=== PATIENT | male | born 1995 | race Caucasian/White ===

== ENCOUNTER 2019-12-30 00:34 | Outpatient (CLI) | payer OTHER, SELFPAY ==
[2019-12-30 18:35] LABS: SARS-CoV-2 RNA PCR Negative
== END 2019-12-30 00:35 | disposition home or self-care (01) ==
LOC: ANHCOVIDDT 00:35
PROVIDERS: PCP Internal Medicine; Visit Provider Surgery
DX: Z01.812 Encounter for preprocedural laboratory examination (principal); Z20.828 Contact with and (suspected) exposure to other viral communicable diseases
CPT/HCPCS: 87635; C9803; U0003

== ENCOUNTER 2020-01-02 01:30 | Day surgery (SDC) | payer OTHER, SELFPAY ==
[2019-12-14 17:58] VITALS: BMI 24.5
[2020-01-02] VITALS (9 sets, daily range): BP systolic 101–143; BP diastolic 45–73; PULSE 62–83; RESP 12–20; TEMP 35.9–36.9; O2SAT 99–100
[2020-01-02] MEDS: LACTATED RINGERS 1,000 ML 30 ML IV CONT ×2 (10:45→12:48)
--- NOTE | 2020-01-02 10:51 | P.PNAN_ITS ---
Anes - Initial Pre Proc Eval Procedure: Operation Date: 01/02/20 12:00 Proposed Procedures p Umbilical Hernia Repair, Possible Mesh - Arik Parrish DO Date/Time: 01/02/20 10:51 Surgeon: Arik Parrish DO Pre Op Diagnosis: umbilical hernia Patient Data Age: 24 Gender: M Height: 5 ft 10 in Weight: 77.2 kg Last Vital Signs Temp 98.5 F 01/02/20 10:40 Pulse 66 01/02/20 10:40 BP 137/67 01/02/20 10:40 Pulse Ox 100 01/02/20 10:40 Allergies Allergy/AdvReac Type Severity Reaction Status Date / Time No Known Allergies Allergy Verified 12/22/19 10:33 Home Medications Medication Instructions Recorded Confirmed Type citalopram 20 mg tablet 20 mg PO DAILY 11/24/19 12/27/19 History magnesium 30 mg tablet 30 mg PO DAILY 11/24/19 12/27/19 History multivitamin 1 tablet PO DAILY 11/24/19 12/27/19 History Astragalus 3,000 mcg PO DAILY 12/14/19 12/27/19 History Zinc Orotate 30 mg PO DAILY 12/14/19 12/27/19 History acetylcysteine 1,200 mg PO DAILY 12/14/19 12/27/19 History cyanocobalamin (vitamin B-12) 2,500 mcg SUBLINGUAL DAILY 12/14/19 12/27/19 History [Vitamin B-12] methylprednisolone 4 mg tablets in See Rx Instructions PO PER PKG DIR 12/22/19 12/22/19 Rx a dose pack #21 each Patient hx anesthesia problems: none Family hx anesthesia problems: none [facility] Social History Social History Smoking status: Never smoker Second hand tobacco smoke exposure: No Alcohol intake: never Substance use: never Substance use type: does not use Living arrangements: with family 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 Questions were solicited and answers provided to the satisfaction of the patient/family/POA.
[2020-01-02] MEDS: KETOROLAC 15 MG/ML VIAL (*BKC) IV PUSH (10:59)
[2020-01-02] MEDS: ACETAMINOPHEN 500 MG TABLET 1000 MG PO (10:59)
--- NOTE | 2020-01-02 11:31 | WPDHPUPDATE1 ---
History and Physical Update Update Date/Time: 01/02/20 11:31 History and Physical has been reviewed, including an updated exam of the patient. There are NO changes in the patient's condition. Risks, benefits, and alternatives have been discussed and questions answered. Patient agrees to proceed with procedure.
[2020-01-02] MEDS: ceFAZolin 2 GM/D5W 50 ML 2 GM/50 ML BAG IVPB (12:00)
[2020-01-02] MEDS: BUPIVACAINE/EPINEPHRINE 0.5% 30 ML VIAL INFILTRATE (12:21)
--- NOTE | 2020-01-02 12:39 | PM.PROC ---
Procedure Note - Detailed Date of procedure: 01/02/20 Pre-op diagnosis: umbilical hernia Post-op diagnosis: same Procedure performed: Umbilical hernia repair Description of procedure: Procedure as well as risks, benefits, and alternatives were discussed with the patient. Written consent was obtained and placed in chart prior to procedure. Patient was brought back to surgical suite. He was placed supine on operating table. He was then intubated by Anesthesia Department. His abdomen was prepped and draped in sterile fashion using chlorhexidine prep. 0.5% bupivacaine with epinephrine was infiltrated locally around the operative area. A 3 cm curvilinear incision was made just superior to the umbilicus using a 15 blade scalpel. Electrocautery was used for hemostasis and for dissection down through the subcutaneous fat. Hernia sac was encountered and this was carefully freed up from surrounding subcutaneous fat using electrocautery. The hernia sac was freed up all the way down to the level of the fascia, and then it was transected using electrocautery. The hernia sac was excised and discarded. The umbilical stalk was then lifted off of the fascia with electrocautery. The hernia defect was then measured. This was measuring approximately 4 mm. The decision was made to repair the hernia primarily. The fascia of the hernia defect was then reapproximated using 0 Ethibond [id number] sutures. The repair was inspected and appeared secure. 0.5% bupivacaine with epinephrine was infiltrated around the fascia and subcutaneous space. The umbilical stalk was then reapproximated to the fascia using a 3 0 Vicryl simple interrupted suture. The deep dermis was reapproximated using 3 0 Vicryl simple interrupted sutures, and then the skin was approximated using 4 Monocryl running subcuticular suture. Exofin glue was then applied on top. The patient was then awakened from anesthesia, extubated, and transferred to recovery. Anesthesia: GLMA and local (0.5% bupivacaine with epinephrine) Surgeon: Arik Parrish DO Estimated blood loss (mL): 1 Complications: No immediate complications Condition: stable Disposition: same day Findings: Mr. Benitez presents with an umbilical hernia. He reports noticing a bulge at his umbilicus approximately 5 years ago which was initially small and asymptomatic. Over the years, he has noticed increase in size and tenderness. He develops pain at the site while performed physical activity and with stretching.Discussions were made with the patient about treatment options and decision was made to proceed with umbilical hernia repair with possible mesh. Umbilical hernia repair was performed. Patient was found to have a small 4 mm hernia at the umbilicus without any surrounding bulges or other abnormalities. The hernia was closed using 0 Ethibond [id number] sutures. A total of 3 sutures were placed transversely to approximate the fascia without any tension. No specimens were obtained for pathology.
== END 2020-01-02 14:36 | disposition home or self-care (01) ==
PROVIDERS: PCP Internal Medicine; Visit Provider Surgery
PROC: (CPT 49585; principal; 2020-01-02 12:00)
DX: K42.9 Umbilical hernia without obstruction or gangrene (principal)
CPT/HCPCS: 49585; A9270; J0690; J1100; J1885; J2250; J2405; J2704; J3010; J7120

== ENCOUNTER 2020-01-05 13:46 | Outpatient (CLI) | payer OTHER, SELFPAY ==
--- NOTE | 2020-01-05 15:00 | NEURO_ITS ---
Patient Number: [id number] Impression: # Complains of left 4th and 5th finger numbness/tingling. # No Carpal Tunnel Syndrome or ulnar neuropathy. # Normal nerve conduction study. # Normal needle/EMG exam. Nerve Conduction Studies Anti Sensory Summary Table Stim Site NR Peak (ms) P-T Amp (?V) Site1 Site2 Delta-P (ms) Dist (cm) Gaudencio (m/s) Left Median Anti Sensory (2-3nd Digit) Wrist 2.9 95.6 Wrist 2-3nd Digit 2.9 14.0 48 Wrist 2.8 65.3 Wrist 2-3nd Digit 2.9 14.0 48 Left Radial Anti Sensory (Base 1st Digit) Wrist 1.7 50.5 Wrist Base 1st Digit 1.7 0.0 Left Ulnar Anti Sensory (5th Digit) Wrist 2.6 84.6 Wrist 5th Digit 2.6 14.0 54 Motor Summary Table Stim Site NR Onset (ms) O-P Amp (mV) Site1 Site2 Delta-0 (ms) Dist (cm) Gaudencio (m/s) Left Median Motor (Abd Poll Brev) Wrist 2.6 8.8 Elbow Wrist 4.7 31.0 66 Elbow 7.3 8.1 Left Ulnar Motor (Abd Dig Minimi) Wrist 2.5 8.3 A Elbow Wrist 4.8 31.0 65 A Elbow 7.3 9.6 F Wave Studies NR F-Lat (ms) L-R F-Lat (ms) Left Median (Mrkrs) (Abd Poll Brev) 24.45 Left Ulnar (Mrkrs) (Abd Dig Min) 25.47 EMG Side Muscle Nerve Root Ins Act Fibs Amp Dur Recrt Comment Left 1stDorInt Ulnar C8-T1 Nml Nml Nml Nml Nml Left Ext Indicis Radial (Post Int) C7-8 Nml Nml Nml Nml Nml Left Ext Digitorum Radial (Post Int) C7-8 Nml Nml Nml Nml Nml Left BrachioRad Radial C5-6 Nml Nml Nml Nml Nml Left PronatorTeres Median C6-7 Nml Nml Nml Nml Nml Left Abd Poll Brev Median C8-T1 Nml Nml Nml Nml Nml MTDD
== END 2020-01-05 13:47 | disposition home or self-care (01) ==
PROVIDERS: PCP Internal Medicine; Visit Provider Internal Medicine
DX: R20.2 Paresthesia of skin (principal)
CPT/HCPCS: 95886; 95909

== ENCOUNTER 2025-04-07 11:00 | Emergency (ER) | payer OTHER, SELFPAY ==
--- NOTE | 2025-04-07 11:01 | ED_ITS ---
HPI - Wound/Laceration General Chief Complaint: Wound/Laceration Stated Complaint: L HAND LACERATION Time Seen by Provider: 04/07/25 11:01 Source: patient Mode of arrival: ambulatory Limitations: no limitations History of Present Illness HPI narrative: Reji is a 29-year-old male patient presenting to the clinic today with complaints of a left dorsal proximal thumb laceration. He reports he accidentally cut himself half an hour ago when he was using a tape gun. States the serrated blade cut his left thumb. Has full range of motion of the left thumb. They attempted to put bleed stop powder on his thumb. Bleeding is controlled. Last Tetanus was 2018. Related Data Home Medications ?Medication ?Instructions ?Recorded ?Confirmed ?Last Taken ?Type magnesium 30 mg tablet 30 mg PO DAILY 11/24/1905/1912/30/19 History multivitamin (Multiple Vitamins 1 tablet PO DAILY 02/0406/13/24 12/30/19 History tablet) Zinc Orotate 30 mg PO DAILY 12/14/1905/1912/30/19 History cyanocobalamin (vitamin B-12) 2,500 mcg sublingual MENDOZA LY 12/14/19 06/13/24 12/30/19 History 2,500 mcg sublingual tablet (Vitamin B-12) Allergies Allergy/AdvReac Type Severity Reaction Status Date / Time No Known Allergies Allergy Verified 04/07/25 11:16 Review of Systems Review of Systems: Pertinent positives per HPI. Patient denies any fever, chills, rash, headache, visual changes, dizziness, cough, runny nose, sore throat, shortness of breath, chest pain, palpitations, nausea, vomiting, diarrhea, constipation, abdominal pain, or any urinary issues. [facility] Past Medical History Medical History Unspecified abdominal pain Other fatigue Elevated liver enzymes Dietary counseling and surveillance (05/02/16) Depression Gastro-esophageal reflux disease without esophagitis Surgical History Surgical History History of umbilical hernia repair 01/02/20 s/p umbilical hernia repair History of endoscopy Family History Family History Mother Thyroid disease low thyroid Pre-diabetes Father Patient's father is in good health Sibling Patient's brother is in good health Grandparent Cerebrovascular accident Other Hypertension Social History Social History Smoking status: Never smoker Second hand tobacco smoke exposure: No Alcohol intake: never Substance use: never Substance use type: does not use Current Housing: Decline to Answer Concerned About Future Housing: Decline to Answer Difficulty Paying Gas/Electric Bills: Decline to Answer Difficulty Paying for Meds: Decline to Answer Currently Unemployed: Decline to Answer Education: Decline to Answer Difficulty w/ Childcare or Family Care: Decline to Answer Living arrangements: with family Occupation/Education: occupation 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 There is no relevant family history pertinent to the patient complaint. Exam Narrative: General: Well-developed, well nourished, in no apparent distress Head: Normocephalic, atraumatic. Cardio: Regular rate and rhythm, s1 and s2 normal, no murmur appreciated. Resp: Clear to auscultation bilaterally, no rhonchi, rales, wheezing or rubs. Integumentary: Morven, warm, and dry, intact without lesion, no rashes. Course Course Emergency Course: Portions of this record may have been created with voice recognition software. Level of Care: Express Care Visit Vital Signs Vital signs: Vital Signs Temperature 36.9 C 04/07/25 11:10 Pulse Rate 82 04/07/25 11:10 Respiratory Rate 14 04/07/25 11:10 Blood Pressure 134/80 04/07/25 11:10 Pulse Oximetry 100 04/07/25 11:10 Oxygen Delivery Room Air 04/07/25 11:10 Temperature 36.9 C 04/07/25 11:10 Pulse Rate 82 04/07/25 11:10 Respiratory Rate 14 04/07/25 11:10 Blood Pressure 134/80 04/07/25 11:10 Pulse Oximetry 100 04/07/25 11:10 Oxygen Delivery Room Air 04/07/25 11:10 Vital signs reviewed Procedures Laceration Laceration 1: Date: 04/07/25 Site: hand (left thumb) Side (If applicable): left Size (cm): 1.25 Description: flap and irregular Depth: simple, single layer Local Anesthetic: lidocaine 1% Amount of anesthesia used (mL): 1 Pre-repair: wound explored and irrigated ====== Skin Level ====== Skin layer closed with: nylon Size (cm): 5-0 Number of sutures: 3 Technique: simple, interrupted ====== Subcutaneous Layer ====== ====== Muscle Layer ====== ====== Tendon Layer ====== Dressing: Verbal consent obtained for laceration repair. Risk and benefits explained and patient voiced understanding. Area was cleansed with antiseptic wound wash and a 27 gauge needle was then used to instill (1) ml of 1% lidocaine without epi into the wound edges. Area was prepped and draped using sterile technique. A 5-0 suture on a p needle was used to place (3) interrupted sutures bringing the wound edges together- well approximated. Patient tolerated procedure well. Sterile dressing applied. MDM - Wound/Laceration MDM Narrative Medical decision making narrative: At the time of visit patient is resting comfortably on the exam table. Patient appears to be nontoxic. Complaints of a left dorsal proximal thumb laceration. He reports he accidentally cut himself half an hour ago when he was using a tape gun. States the serrated blade cut his left thumb. Has full range of motion of the left thumb. They attempted to put bleed stop powder on his thumb. Bleeding is controlled. Last Tetanus was 2017. Tdap was ordered. Laceration repair sent up and lidocaine was ordered. Procedures: Laceration repair procedure was performed in the clinic today. 1 mL of lidocaine was injected into the wound edges. Three interrupted sutures were placed bringing wound edges well approximate. Bleeding is controlled. Splint was applied. Plan: Patient had 1. 25cm laceration to the left dorsal proximal thumb. Range of motions intact. Three interrupted sutures were placed bringing wound edges well approximate. Sutures out in 7-10 days. Watch for signs and symptoms of infection. Supportive measures were discussed with the patient and they voiced understanding discharge instructions and agrees to treatment plan. Return precautions reviewed Differential Diagnosis Differential diagnosis: Likely laceration, abscess, abrasion and avulsion of skin Discharge Plan Discharge Clinical Impression: Laceration of thumb Qualifiers: Encounter type: initial encounter Damage to nail status: without damage Foreign body presence: without foreign body Laterality: left Qualified Code(s): S61.012A - Laceration without foreign body of left thumb without damage to nail, initial encounter Patient Disposition: Home Condition: Stable Instructions: Antibiotic Form, Finger Laceration (ED) Additional Instructions: 3 interrupted sutures were placed- Laceration repair performed. Leave bandage on for 24 hours then may remove and apply band aide covering as needed. Keep wound clean and dry Skin sutures out in 7-10 days. Wear finger splint/delmy as discussed. Watch for signs and symptoms of infection- redness, streaking, swelling, purulent discharge, or increase in pain. No use of the left hand until sutures removed Follow up with your PCP for suture removal or return to the Express care. Patient Language: Polish Prescriptions: No Action magnesium 30 mg tablet 30 mg PO DAILY multivitamin [Multiple Vitamins] Tablet 1 tablet PO DAILY cyanocobalamin (vitamin B-12) [Vitamin B-12] 2,500 mcg Tablet, Sublingual 2,500 mcg SUBLINGUAL DAILY Zinc Orotate 30 mg PO DAILY Follow-up/Referrals: Zeferino Wolfe DO [Primary Care Provider, Internal Medicine] Stand Alone Forms: Work/School Release IP Time of Disposition: 11:38 Quality NIHSS Nursing Documentation ED NIHSS nursing documentation: reviewed/agree
[2025-04-07 11:10] VITALS: BP 134/80; PULSE 82; RESP 14; TEMP 36.9; O2SAT 100
[2025-04-07] MEDS: LIDOCAINE 1% LOCAL INJ 2 ML AMPUL INFILTRATE (11:21)
[2025-04-07] MEDS: TETANUS,DIPHTHERIA,AC PERTUSSIS ADULT (0.5 ML) BOOSTRIX IM (11:21)
== END 2025-04-07 11:50 | disposition home or self-care (01) ==
PROVIDERS: Emergency Provider Nurse Practitioner Family; PCP Internal Medicine
DX: S61.012A Laceration without foreign body of left thumb without damage to nail, initial encounter (principal); W27.8XXA Contact with other nonpowered hand tool, initial encounter; Y99.0 Civilian activity done for income or pay; Z23 Encounter for immunization; K21.9 Gastro-esophageal reflux disease without esophagitis
CPT/HCPCS: 12001; 90471; 90715; 99212; G0463; J2003